=== PATIENT | female | born 1975 | race Caucasian/White ===

== ENCOUNTER 2016-08-07 20:12 | Emergency (ER) | payer BC ==
[~2016-08-07] VITALS: Ht 162.5 cm; Wt 72.6 kg
[~2016-08-07 20:12] MED LIST: AMBIEN5 MG PO; ANAPROX DS550 MG PO; CARAFATE1 G1 PO; CLARITIN10 MG PO; DONNATAL1 TAB PO; EFFEXOR XR150 M1 PO; FLONASE 0.05% 121 EA NAS; NAPROSYN500 MG PO; PHENERGAN W/DM120 ML PO; PREDNICOT10 MG PO; SKELAXIN800 MG PO; TRAMADOL HCL50 MG PO; TRIMOX500 MG PO; XANAX0.5 MG PO; ZITHROMAX Z PA250 MG PO; ZOLOFT100 MG PO; ZOLOFT50 MG PO
[2016-08-07] MEDS ORDERED: CEFUROXIME AXE250 MG PO (20:29)
[2016-08-07] MEDS ORDERED: VALACYCLOVIR HYD1 GM PO (20:29)
[2016-08-07 20:30] VITALS: BP 140/86
== END 2016-08-07 20:38 | disposition home or self-care (01) ==
LOC: ED 20:12
DX: S96.912A Strain of unspecified muscle and tendon at ankle and foot level, left foot, initial encounter (principal); Z90.89 Acquired absence of other organs; Z79.899 Other long term (current) drug therapy; X58.XXXA Exposure to other specified factors, initial encounter; Y93.89 Activity, other specified; Y92.89 Other specified places as the place of occurrence of the external cause; Y99.9 Unspecified external cause status

== ENCOUNTER 2020-07-25 19:38 | Emergency (ER) | payer SELFPAY ==
[~2020-07-25] VITALS: Ht 162.5 cm; Wt 77.1 kg
[~2020-07-25 19:38] MED LIST changes: +CEFUROXIME AXE250 MG PO; +VALACYCLOVIR HYD1 GM PO
[2020-07-25 19:40] VITALS: BP 161/83
[2020-07-25] MEDS ORDERED: METFORMIN HYDR750 MG PO (19:45)
[2020-07-25] MEDS ORDERED: RYBELSUS7 MG PO (19:46)
[2020-07-25] MEDS ORDERED: GLIMEPIRIDE2 MG PO (19:46)
[2020-07-25] MEDS ORDERED: ATORVASTATIN CA40 M1 PO (19:46)
[2020-07-25] MEDS ORDERED: PREGABALIN300 MG PO (19:46)
[2020-07-25] MEDS ORDERED: FUROSEMIDE20 M1 PO (19:47)
[2020-07-25] MEDS ORDERED: POTASSIUM CHLO10 ME5 PO (19:47)
[2020-07-25] MEDS ORDERED: VENLAFAXINE HYD75 M3 PO (19:47)
[2020-07-25] MEDS ORDERED: PANTOPRAZOLE SO40 MG PO (19:48)
[2020-07-25] MEDS ORDERED: VITAMIN D31250 MC1 PO (19:48)
[2020-07-25] MEDS ORDERED: BUSPIRONE HCL10 MG PO (19:48)
[2020-07-25] MEDS ORDERED: SEPTDS PO (21:06)
[2020-07-25] MEDS ORDERED: CEPHALEXIN500 M1 PO (21:06)
== END 2020-07-25 21:15 | disposition home or self-care (01) ==
LOC: ED 19:38
DX: R23.4 Changes in skin texture (principal); Z88.8 Allergy status to other drugs, medicaments and biological substances; Z79.899 Other long term (current) drug therapy; Z98.890 Other specified postprocedural states

== ENCOUNTER 2020-08-21 19:10 | Emergency (ER) | payer SELFPAY ==
[~2020-08-21] VITALS: Wt 80.3 kg
[~2020-08-21 19:10] MED LIST changes: +ATORVASTATIN CA40 M1 PO; +BUSPIRONE HCL10 MG PO; +CEPHALEXIN500 M1 PO; +FUROSEMIDE20 M1 PO; +GLIMEPIRIDE2 MG PO; +METFORMIN HYDR750 MG PO; +PANTOPRAZOLE SO40 MG PO; +POTASSIUM CHLO10 ME5 PO; +PREGABALIN300 MG PO; +RYBELSUS7 MG PO; +SEPTDS PO; +VENLAFAXINE HYD75 M3 PO; +VITAMIN D31250 MC1 PO
[2020-08-21 19:18] VITALS: BP 145/76
== END 2020-08-22 01:11 | disposition home or self-care (01) ==
LOC: ED 19:10
DX: S92.512A Displaced fracture of proximal phalanx of left lesser toe(s), initial encounter for closed fracture (principal); Z88.8 Allergy status to other drugs, medicaments and biological substances; Z79.2 Long term (current) use of antibiotics; Z79.899 Other long term (current) drug therapy; Z90.89 Acquired absence of other organs; W01.0XXA Fall on same level from slipping, tripping and stumbling without subsequent striking against object, initial encounter; Y93.89 Activity, other specified; Y92.89 Other specified places as the place of occurrence of the external cause; Y99.8 Other external cause status

== ENCOUNTER → 2021-05-14 | Outpatient (CLI) | payer OTHER | END | disposition home or self-care (01) | LOC: US 13:00 | PROVIDERS: ATTEND Family Medicine | DX: G62.9 Polyneuropathy, unspecified (principal) ==

== ENCOUNTER → 2022-03-25 | Outpatient (CLI) | payer OTHER ==
[2022-03-25 16:55] LABS: BASO % 0.6 % (0.0-1.0); EOS % 0.6 % (1.0-4.0); HEMATOCRIT 36.5 % (37.0-47.0); LYMPH # 2.1 10*3/uL (1.3-4.4); LYMPH % 38.6 % (27.0-41.0); MEAN CELL VOLUME 77.7 fl (81.0-99.0); MEAN CORPUSCULAR HGB 26.6 pg (27.0-31.0); MEAN CORPUSCULAR HGB CONC 34.2 g/dl (33.0-37.0); MEAN PLATELET VOLUME 12.2 fl (9.6-12.3); MONO # 0.2 10*3/uL (0.1-1.0); MONO % 4.2 % (3.0-9.0); NEUT % 55.8 % (47.0-73.0); PLATELET COUNT AUTOMATED 212 10*3/uL (130-400); RED CELL DISTRI WIDTH 14.2 % (0-14.5); WHITE BLOOD COUNT 5.4 10*3/uL (4.8-10.8)
[2022-03-25 17:15] LABS: ALKALINE PHOSPHATASE 86 U/L (46-116); BUN 12 mg/dl (9-23); CHLORIDE 97 mmol/L (98-107); SGPT/ALT 27 U/L (10-49); TOTAL PROTEIN 6.9 gm/dL (6.0-8.0)
== END | disposition home or self-care (01) ==
LOC: LAB 16:36
PROVIDERS: ATTEND Physical Therapist
DX: E11.42 Type 2 diabetes mellitus with diabetic polyneuropathy (principal); D50.9 Iron deficiency anemia, unspecified; N91.2 Amenorrhea, unspecified

== ENCOUNTER 2022-06-11 12:27 | Emergency (ER) | payer MEDICAID ==
[~2022-06-11] VITALS: Ht 162.5 cm; Wt 77.1 kg
[2022-06-11 19:21] VITALS: BP 145/72
[2022-06-11] MEDS ORDERED: AMOX-CLAV 875-1 EACH PO (19:36)
[2022-06-11] MEDS ORDERED: VENT7GM INH (19:36)
== END 2022-06-11 19:47 | disposition home or self-care (01) ==
LOC: ED 12:27
DX: J40 Bronchitis, not specified as acute or chronic (principal); F32.A Depression, unspecified; E11.9 Type 2 diabetes mellitus without complications; Z88.8 Allergy status to other drugs, medicaments and biological substances; Z88.1 Allergy status to other antibiotic agents; Z90.89 Acquired absence of other organs

== ENCOUNTER 2023-08-08 14:36 | Emergency (ER) | payer SELFPAY ==
[~2023-08-08] VITALS: Ht 162.5 cm; Wt 77.1 kg
[~2023-08-08 14:36] MED LIST changes: +AMOX-CLAV 875-1 EACH PO; +VENT7GM INH
[2023-08-08 14:54] VITALS: BP 150/106
[2023-08-08 15:24] LABS: BASO % 0.4 % (0.0-1.0); HEMATOCRIT 34.1 % (37.0-47.0); LYMPH # 0.8 10*3/uL (1.3-4.4); LYMPH % 29.7 % (27.0-41.0); MEAN CORPUSCULAR HGB 29.1 pg (27.0-31.0); MEAN CORPUSCULAR HGB CONC 34.6 g/dl (33.0-37.0); MEAN PLATELET VOLUME 12.3 fl (9.6-12.3); MONO # 0.3 10*3/uL (0.1-1.0); MONO % 10.2 % (3.0-9.0); NEUT # 1.5 10*3/uL (2.3-7.9); NEUT % 59.3 % (47.0-73.0); PLATELET COUNT AUTOMATED 105 10*3/uL (130-400); RED BLOOD COUNT 4.06 10*6/uL (4.10-5.10); RED CELL DISTRI WIDTH 14.3 % (0-14.5); WHITE BLOOD COUNT 2.6 10*3/uL (4.8-10.8)
[2023-08-08 15:44] LABS: BUN 8 mg/dl (9-23); CHLORIDE 102 mmol/L (98-107); POTASSIUM 3.8 mmol/L (3.4-5.1)
== END 2023-08-08 17:55 | disposition home or self-care (01) ==
LOC: ED 14:36
PROVIDERS: Nurse Practitioner Family
DX: B34.9 Viral infection, unspecified (principal); Z20.822 Contact with and (suspected) exposure to COVID-19; M79.641 Pain in right hand; M79.642 Pain in left hand; Z88.1 Allergy status to other antibiotic agents; Z88.8 Allergy status to other drugs, medicaments and biological substances; Z79.899 Other long term (current) drug therapy; Z90.89 Acquired absence of other organs